=== PATIENT | female | born 1975 | race Caucasian/White ===

== ENCOUNTER 2016-05-25 14:30 | Emergency (ER) | payer BC ==
[2016-05-25] MEDS ORDERED: NORMAL SALINE 1,000 ML IV ONE (14:47)
--- NOTE | 2016-05-25 14:47 | ERNOTE ---
Headache ER HPI - Narrative Date of Service: 05/25/16 - General Presenting Symptoms: headache Time Seen by Provider: 05/25/16 14:35 Source: patient Exam Limitations: no limitations - Immun/Allergies/Home Medications Immunizations: IMMUNIZATION HX Immunizations Up to Date Yes History of Influenza Vaccine Yes Hx Pneumococcal Vaccination No Allergies/Adverse Reactions: Allergies Penicillins Allergy (Verified 05/25/16 14:39) vomiting Home Medications: HOME MEDICATIONS Topiramate [Topamax] 50 mg PO BID #60 tab 11/14/14 [Last Taken Unknown] Ondansetron [Zofran Odt] 8 mg PO Q8H PRN #12 tab 07/17/15 [Last Taken Unknown] Rizatriptan Benzoate [Maxalt Homicide Detective] 10 mg PO PRN PRN 07/17/15 [Last Taken Unknown] - Pain Pain Score: 9 - History of Present Illness Narrative: 41-year-old female presenting to the emergency room for migraine. States that she took her migraine medicine at 10 AM this morning and migraine has not been able to be controlled without medication. Patient has a history of migraines. Date (Duration): 05/25/16 Timing of Headache: still present, constant, worse Quality: Present: throbbing Severity Maximum: Present: moderate Severity-Currently: Present: moderate Headache frequency: Present: chronic headaches, similar to previous headache Modifying Factors - (Improves): Reports: immobilization Modifying Factors - (Worsens): Reports: movement, exposure to light Associated Symptoms: Reports: denies symptoms Exacerbated by:: Reports: light, noise, movement Prior Treament: Reports: similar symptoms before Review of Systems - Review of Systems Constitutional: Present: See HPI EYE: Present: see HPI, other - sensitive to light ENT: Present: no symptoms reported Respiratory: Present: no symptoms reported Cardiology: Present: no symptoms reported Gastrointestinal/Abdominal: Present: no symptoms reported Genitourinary: Present: no symptoms reported Musculoskeletal: Present: no symptoms reported Skin: Present: no symptoms reported Neurological: Present: See HPI, headache Endocrine: Present: no symptoms reported Hematologic/Lymphatic: Present: no symptoms reported Psych: Present: no symptoms reported All Other Systems: All systems neg except as marked - Patient's Past Medical History Patient History - Medical: Migraines Patient History - Cardiac/Respiratory: Other Patient History - Cancer: No Hx of Cancer Patient History - Surgical Procedures: D & C, Tubal Ligation, T & A, Other Patient History - Other: None - Social History Living Situations: home Abuse History: No History of abuse Psych History: No pertinent hx Alcohol Use: rarely Drug Use: none - Immunizations Immunizations Up to Date: Yes Hx Pneumococcal Vaccination: No History of Influenza Vaccine: Yes Physical Exam - Physical Exam Narrative: 41 y/ female c/o BYRNES. She is light sensitive and nauseated. States pain is frontal and behing both eyes. states she took her normal migraine medication at home and has not had relief. General Appearance: Present: wd/wn, alert, mild distress Eye Exam: Normal inspection: bilateral, PERRL: bilateral Ears, Nose, Throat: Present: normal ENT inspection Neck: Present: normal inspection, nontender, full range of motion Respiratory: Present: no respiratory distress, normal breath sounds, lungs clear Cardiovascular/Chest: Present: regular rate, rhythm, no murmur, normal peripheral pulses Gastrointestinal/Abdominal: Present: normal bowel sounds, soft Extremity Exam: Present: normal inspection, normal range of motion, no edema Neurological Exam: Present: alert, oriented, normal mood/affect, no motor/ sensory deficits. Absent: facial droop, motor weakness, disoriented to person, disoriented to time, disoriented to place, disoriented to situation Skin Exam: Present: normal color, warm/dry Lymphatic Exam: Present: no adenopathy ED Progress - Vital Signs Patient's Vital Signs:: I have reviewed the patient's vital signs. Vital Signs: Vital Signs 05/25/16 14:36 Temperature 36.8 C Pulse Rate 79 Respiratory 16 Rate Blood Pressure 141/68 O2 Sat by Pulse 100 Oximetry - Progress/Reassessment Chief Complaint: Headache Progress:: Improved Departure Clinical Impression: Migraine Qualifiers: Migraine type: unspecified Status migrainosus presence: without status migrainosus Intractability: not intractable Qualified Code(s): G43.909 - Migraine, unspecified, not intractable, without status migrainosus - Departure Disposition: Home self-care Condition: Stable Instructions: Migraine Headache, [id number] Additional Instructions: Return home to rest. Continue previous medications as directed. Follow up with your primary care in the next 2-3 days if needed. Return to the emergency room if symptoms return or persist Referrals: Shruthi Maradiaga MD [Primary Care Provider] -
[2016-05-25] MEDS ORDERED: PROCHLORPERAZINE EDISYLATE 5 MG/ML VIAL IV ONE (14:48)
[2016-05-25] MEDS ORDERED: MEPERIDINE HCL/PF 50 MG/ML SYRG IV ONE (14:48)
[2016-05-25] MEDS ORDERED: MEPERIDINE HCL/PF 50 MG/ML SYRG ONE (14:56)
[2016-05-25] MEDS ORDERED: PROCHLORPERAZINE EDISYLATE 5 MG/ML VIAL ONE (14:57)
[2016-05-25 15:44] VITALS: BP 110/61
== END 2016-05-25 16:00 | disposition home or self-care (01) ==
LOC: ER 14:30
DX: G43.909 Migraine, unspecified, not intractable, without status migrainosus (principal)

== ENCOUNTER 2016-10-30 12:04 | Emergency (ER) | payer BC ==
[2016-10-30] MEDS ORDERED: NORMAL SALINE 1,000 ML IV ONE (12:52)
[2016-10-30] MEDS ORDERED: KETOROLAC TROMETHAMINE 30 MG/ML VIAL IV ONE (12:53)
[2016-10-30] MEDS ORDERED: PROMETHAZINE HCL 25 MG in DEXTROSE 5 % IN WATER 50 ML IV ONE ×2 (12:53)
[2016-10-30] MEDS ORDERED: MEPERIDINE HCL/PF 50 MG/ML SYRG IV ONE (12:53)
--- NOTE | 2016-10-30 13:01 | ERNOTE ---
Headache ER HPI - Narrative Date of Service: 10/30/16 - General Presenting Symptoms: "migraine" Time Seen by Provider: 10/30/16 12:48 Source: patient Exam Limitations: no limitations - Immun/Allergies/Home Medications Immunizations: IMMUNIZATION HX Immunizations Up to Date No History of Influenza Vaccine Yes Hx Pneumococcal Vaccination No Allergies/Adverse Reactions: Allergies Penicillins Allergy (Verified 05/25/16 14:39) vomiting Home Medications: HOME MEDICATIONS Topiramate [Topamax] 50 mg PO BID #60 tab 11/14/14 [Last Taken Unknown] Rizatriptan Benzoate [Maxalt Burnisher] 10 mg PO PRN PRN 07/17/15 [Last Taken Unknown] - History of Present Illness Narrative: patient presents to the ED with "migraine". She relates that she developed a typical migraine BYRNES last night. This was not relieved by her home medications. This is a typical migraine for her. nothing different about it. No N/T/W. No fever. nausea and vomiting with this. Photophobia with this, no other acute visual changes. No recent illnesses. Nothing makes this better or worse. Severe but typical pain for her. Not worse BYRNES of her life. She relates she normally comes in and receives demerol and phenergan with IV fluids. i checked and this is what she normally gets. Timing of Headache: gradual Quality: Present: other - typical migraine Severity Maximum: Present: severe Headache frequency: Present: frequent headaches Modifying Factors - (Improves): Reports: other - nothing Modifying Factors - (Worsens): Reports: other - nothing Associated Symptoms: Reports: nausea, vomiting. Denies: fever/chills, nasal congestion, facial pain, weakness, numbness/tingling, vision changes, loss of consciousness, seizures, neck pain/stiffness Prior Treament: Denies: recently seen Review of Systems - Review of Systems Constitutional: Absent: fever EYE: Present: see HPI ENT: Present: no symptoms reported Respiratory: Absent: shortness of breath Cardiology: Absent: chest pain Gastrointestinal/Abdominal: Absent: abdominal pain Genitourinary: Absent: dysuria Musculoskeletal: Present: no symptoms reported Neurological: Present: See HPI. Absent: weakness, numbness, tingling - Patient's Past Medical History Patient History - Medical: Migraines Patient History - Cardiac/Respiratory: Other Patient History - Cancer: No Hx of Cancer Patient History - Surgical Procedures: D & C, Tubal Ligation, T & A, Other Patient History - Other: None - Social History Living Situations: home Abuse History: No History of abuse Psych History: No pertinent hx Smoking Status: Never smoker Have you smoked in the past 12 months: No Do you dip or chew tobacco: No Alcohol Use: rarely Drug Use: none - Immunizations Immunizations Up to Date: No Hx Pneumococcal Vaccination: No History of Influenza Vaccine: Yes Physical Exam - Physical Exam General Appearance: Present: alert, no apparent distress Head Exam: Present: normal inspection, no evidence of injury Eye Exam: Normal inspection: bilateral, PERRL: bilateral Ears, Nose, Throat: Present: normal ENT inspection Neck: Present: normal inspection, nontender, supple, full range of motion Respiratory: Present: no respiratory distress, no accessory muscle use, lungs clear Cardiovascular/Chest: Present: regular rate, rhythm, no murmur, normal peripheral pulses Gastrointestinal/Abdominal: Present: normal bowel sounds, nontender, soft. Absent: tenderness Back Exam: Present: normal range of motion Extremity Exam: Present: normal inspection, no edema Neurological Exam: Present: alert, normal mood/affect, no motor/sensory deficits , corrections sergeant II-XII nml as tested, normal cerebellar test. Absent: facial droop, motor weakness, disoriented to person Skin Exam: Present: normal color, warm/dry ED Progress - Vital Signs Patient's Vital Signs:: I have reviewed the patient's vital signs. Vital Signs: Vital Signs 10/30/16 12:38 Temperature 37.0 C Pulse Rate 90 Respiratory 18 Rate Blood Pressure 125/75 O2 Sat by Pulse 98 Oximetry - Progress/Reassessment Chief Complaint: Headache Progress Note-Subjective: 10/30/16 14:40 50% improved with meds on re-check. Would like to go home. Nothing to suggest need for imaging, SAH, meningitis or other acute life threat. Just like prior migraine HAs. i normally do not use narcotics for migraine but this is what she always gets. For this reason I titrated her down to 25 and this seemed to work so hopefully we can begin using standard migraine meds and avoid the narcotics for her. I discussed Departure Clinical Impression: Migraine - Departure Disposition: Home self-care Condition: Stable Instructions: Migraine Headache, [id number] Additional Instructions: Rest. Fluids. Follow-up with your primary doctor in 3 days for a re-check. Return for fever, weakness, vomiting, increased pain or if your condition worsens or changes in any way. Referrals: Shruthi Maradiaga MD [Primary Care Provider] -
[2016-10-30] MEDS ORDERED: KETOROLAC TROMETHAMINE 30 MG/ML VIAL ONE (13:21)
[2016-10-30] MEDS ORDERED: MEPERIDINE HCL/PF 50 MG/ML SYRG ONE (13:21)
[2016-10-30 15:13] VITALS: BP 123/62
== END 2016-10-30 15:03 | disposition home or self-care (01) ==
LOC: ER 12:04
DX: G43.909 Migraine, unspecified, not intractable, without status migrainosus (principal)